=== PATIENT | female | born 1935 | race Caucasian/White ===

== ENCOUNTER 2020-09-28 11:15 | Inpatient (IN) ==
[~2020-09-28 11:15] MED LIST: 0.9 % Sodium Chloride 1,000 ML IVC ONE; Acetaminophen IV 1,000 MG/100 ML BAG IVPB ONE; Famotidine 20 MG/2 ML VIAL IVP ONE
[2020-09-28] MEDS ORDERED: CeFAZolin Syr 2,000MG/20 ML 2,000 MG/20 ML SYRINGE IVPB ONE (11:36)
[2020-09-28] MEDS ORDERED: Ringers Solution, Lactated 1,000 ML IVC SCH (11:45)
[2020-09-28] MEDS ORDERED: *HR* FentaNYL (PF) 100 MCG/2 ML VIAL ONE ×2 (12:16→16:15)
[2020-09-28] MEDS ORDERED: *HR* Rocuronium Bromide 50 MG/5 ML VIAL ONE (12:16)
[2020-09-28] MEDS ORDERED: Lidocaine -MPF 2% 2 ML VIAL ONE ×2 (12:16→14:50)
[2020-09-28] MEDS ORDERED: Ondansetron 4 MG/2 ML VIAL ONE (12:16)
[2020-09-28] MEDS ORDERED: *HR* Propofol 200 MG/20 ML VIAL IVP ONE (12:16)
[2020-09-28] MEDS ORDERED: Nitroglycerin 0.4 MG TAB.SUBL SL PRN (12:21)
[2020-09-28] MEDS ORDERED: Albuterol 2.5 MG/3 ML NEBULIZER IH PRN (12:21)
[2020-09-28] MEDS ORDERED: *HR* FentaNYL (PF) 100 MCG/2 ML VIAL IVP PRN (12:21)
[2020-09-28] MEDS ORDERED: Ondansetron 4 MG/2 ML VIAL IVP PRN ×2 (12:21→19:26)
[2020-09-28] MEDS ORDERED: Naloxone 0.4 MG/ML INJ IVP PRN ×2 (12:21→19:26)
[2020-09-28] MEDS ORDERED: ceFAZolin 1,000 MG, Sodium Chloride IRRigation 1,000 ML IR ONE (12:55)
[2020-09-28] MEDS ORDERED: *HR* Vasopressin 20 UNIT/ML VIAL ONE (13:58)
[2020-09-28] MEDS ORDERED: Heparin 1,000 UNITS/500 mL 500 ML ONE ×3 (14:01→14:51)
[2020-09-28] MEDS ORDERED: Protamine Sulfate 50 MG/5 ML VIAL IVP ONE (14:01)
[2020-09-28] MEDS ORDERED: *HR* Metoprolol 5 MG/5 ML VIAL IVP ONE (14:07)
[2020-09-28] MEDS ORDERED: *HR* Midazolam HCl 2 MG/2 ML VIAL ONE (14:12)
[2020-09-28] MEDS ORDERED: Lidocaine HCL 4 ML Topical Solution (Laryng-O-Jet Kit Sterile Pak) TP ONE (15:15)
[2020-09-28] MEDS ORDERED: *HR* Heparin 5,000 UNIT/ML VIAL ONE (15:36)
[2020-09-28] MEDS ORDERED: EPHEDrine 50 MG/ML VIAL ONE (15:57)
[2020-09-28] MEDS ORDERED: *HR* Phenylephrine 10 MG/ML VIAL ONE (16:00)
[2020-09-28] MEDS ORDERED: Sugammadex Sodium 200 MG/2 ML VIAL IV ONE (17:32)
[2020-09-28] MEDS ORDERED: *HR* HYDROcodone/Acet 5/325 mg TABLET PO PRN (19:26)
[2020-09-28] MEDS ORDERED: *HR* Labetalol 20 MG/4 ML SYRINGE IVP PRN (19:26)
[2020-09-28] MEDS ORDERED: Acetaminophen 325 MG TABLET PO PRN (19:26)
[2020-09-29] MEDS: CeFAZolin 2 GM/120 ML BAG IVPB SCH ×3 (00:08→15:01)
[2020-09-29 01:05] LABS: Basophils % 0.1 %; Hematocrit 26.6 % (35.3-44.9); Hemoglobin 8.8 g/dL (11.5-15.4); Immature Granulocytes % 0.5 % (0-4); Lymphocytes # 0.6 K/mcL (0.6-4.6); Lymphocytes % 8.2 %; Mean Corpuscular HGB Conc 33.1 g/dL (31.6-35.5); Mean Corpuscular Hemoglobin 30.2 pg (28.0-33.3); Mean Corpuscular Volume 91.4 fL (83.0-100.0); Mean Platelet Volume 9.2 fL (9.4-12.4); Monocytes # 0.2 K/mcL (0.0-1.3); Monocytes % 2.1 %; Neutrophils # 6.8 K/mcL (1.6-8.9); Platelet Count 253 K/mcL (140-400); Red Blood Count 2.91 M/mcL (3.82-4.97); Red Cell Distribution Width 12.7 % (11.5-14.5); Segmented Neutrophils % 89.1 %; White Blood Count 7.7 K/mcL (4.3-11.1)
[2020-09-29 01:20] LABS: BUN/Creatinine Ratio 23 (6-26); Blood Urea Nitrogen 23 mg/dL (8-23); Calcium 8.5 mg/dL (8.6-10.3); Carbon Dioxide 26 mEq/L (23-29); Chloride 102 mEq/L (98-107); Glucose 171 mg/dL (70-105); Osmolality,Calculated 292 (280-300); Potassium 4.1 mEq/L (3.5-5.1); Sodium 137 mEq/L (136-145); eGFR For African Americans > 60 (> 60); eGFR For Non-African Americans 53 (> 60)
[2020-09-29 10:58] VITALS: BP 126/65
== END 2020-09-29 16:05 | disposition home or self-care (01) | DRG 39 ==
LOC: SAMDAY 11:15 → 2NNU 19:41
PROVIDERS: ADMIT Surgery Vascular Surgery; ATTEND Surgery Vascular Surgery